=== PATIENT | male | born 1960 | race American Indian/Alaskan Native ===

== ENCOUNTER 2019-02-23 12:42 | Emergency (ER) | payer BC ==
[2019-02-23 12:54] VITALS: RESP 18
[2019-02-23] MEDS ORDERED: Labetalol 5mg/ml (4ml) IV STA (13:26)
[2019-02-23 13:42] LABS: BASO # 0.04 K/mm3 (0.0-2.0); BASO % 0.3 % (0.0-3.0); HEMOGLOBIN 15.5 g/dL (14.0-18.0); LYMPH % 8.2 % (22.0-35.0); MEAN CELL VOLUME 83.1 fl (80.0-105.0); MEAN CORPUSCULAR HEMOGLOBIN 28.8 pg (25.0-35.0); MEAN CORPUSCULAR HGB CONC 34.7 g/dl (31.0-37.0); MEAN PLATELET VOLUME 9.3 fl (7.0-11.0); MONO # 0.8 (0.1-0.6); MONO % 6.5 % (1.0-6.0); RBC 5.38 10^6/uL (3.5-6.1); RED CELL DISTRIBUTION WIDTH 13.3 % (11.5-14.5); WHITE BLOOD COUNT 12.6 10^3/uL (4.5-11.0)
[2019-02-23 13:48] LABS: ALT/SGPT 15 U/L (7-56); AST/SGOT 29 U/L (17-59); CALCIUM 9.3 mg/dL (8.4-10.5); GFR NON-AFRICAN AMERICAN > 60
[2019-02-23 13:49] LABS: BLOOD UREA NITROGEN 15 mg/dL (7-21)
[2019-02-23] MEDS ORDERED: Labetalol 5 mg/ml Inj 20ML IV STA (13:52)
[2019-02-23 13:53] LABS: ALB/GLOB RATIO 1.2 (1.1-1.8); ALBUMIN 4.9 g/dL (3.0-4.8)
--- NOTE | 2019-02-23 14:21 | ED PDOC ---
Arrival/HPI - General Chief Complaint: ENT Problem Time Seen by Provider: 02/23/19 12:56 Historian: Patient - History of Present Illness Narrative History of Present Illness (Text): 02/23/19 14:21 58 year old male, with no significant past medical history, who presents to the emergency department complaining of pain in throat onset yesterday. Patient reports he was sent to the emergency room for high blood pressure by his PMD, Dr. Hilton, whom he initially saw for pain in his throat. Patient also reports similar symptoms years ago. He denies any hemoptysis, headache, nausea, vomiting, shortness of breath, chest pain, or any other symptoms. PMD: Dr. Hilton Time/Duration: 24 hours Symptom Onset: Gradual Symptom Course: Unchanged Activities at Onset: Light Context: Home Past Medical History - Provider Review Nursing Documentation Reviewed: Yes - Cardiac Hx Hypertension: Yes - Psychiatric Hx Substance Use: No Family/Social History - Physician Review Nursing Documentation Reviewed: Yes Family/Social History: Unknown Family HX Smoking Status: Never Smoked Hx Alcohol Use: Yes Frequency of alcohol use: Socially Hx Substance Use: No Allergies/Home Meds Allergies/Adverse Reactions: Allergies No Known Allergies Allergy (Verified 02/23/19 12:53) Home Medications: Home Meds Medication Instructions Recorded Confirmed Allopurinol [Zyloprim] 300 mg PO DAILY 08/20/16 02/23/19 Atorvastatin [Lipitor] 10 mg PO DAILY 08/20/16 02/23/19 Colchicine 0.6 mg PO DAILY 08/20/16 02/23/19 amLODIPine [Norvasc] 10 mg PO DAILY 08/20/16 02/23/19 Review of Systems - Physician Review All systems were reviewed & negative as marked: Yes - Review of Systems Constitutional: Fevers ENT: Other (pain in throat. ) Respiratory: absent: SOB, Cough Cardiovascular: absent: Chest Pain Gastrointestinal: absent: Abdominal Pain, Nausea, Vomiting Musculoskeletal: absent: Back Pain, Neck Pain Neurological: absent: Headache, Dizziness Endocrine: absent: Diaphoresis Physical Exam Vital Signs Reviewed: Yes Vital Signs Temp Pulse Resp BP Pulse Ox 02/23/19 13:54 114 H 163/96 H 02/23/19 13:46 113 H 18 163/96 H 96 02/23/19 13:31 100.2 F H 02/23/19 12:51 100.2 F H 131 H 18 175/115 H 100 Temperature: Febrile Blood Pressure: Hypertensive Pulse: Tachycardic Respiratory Rate: Normal Appearance: Positive for: Well-Appearing, Non-Toxic, Comfortable Pain Distress: None Mental Status: Positive for: Alert and Oriented X 3 - Systems Exam Head: Present: Atraumatic, Normocephalic Pupils: Present: PERRL Extroacular Muscles: Present: EOMI Conjunctiva: Present: Normal Mouth: Present: Moist Mucous Membranes Pharnyx: Present: EXUDATE (white exudate visualized bilaterally), TONSILS ENLARGED (tonsillar swelling) Neck: Present: Normal Range of Motion Respiratory/Chest: Present: Clear to Auscultation, Good Air Exchange. No: Respiratory Distress, Accessory Muscle Use Cardiovascular: Present: Regular Rate and Rhythm, Normal S1, S2. No: Murmurs Abdomen: No: Tenderness, Distention, Peritoneal Signs Upper Extremity: Present: Normal Inspection. No: Cyanosis, Edema Lower Extremity: Present: Normal Inspection. No: Edema Neurological: Present: GCS=15, Speech Normal Skin: Present: Warm, Dry, Normal Color. No: Rashes Psychiatric: Present: Alert, Oriented x 3, Normal Insight, Normal Concentration Medical Decision Making ED Course and Treatment: 02/23/19 14:18 Impression: 58 year old male presents to the emergency department complaining of pain in throat onset yesterday. Differential Diagnosis included but are not limited to: --Tonsilitis --Pharyngitis --Hypertensive Urgency Plan: -- Rapid step -- IV Fluids -- Throat culture -- Labetalol -- Motrin -- Trandate -- Labs -- Amoxicillin -- Motrin -- Reassess and disposition Prior Visits: Notes and results from previous visits were reviewed. Progress Notes: 02/23/19 16:31 Leukocytosis of 12 noted with patient's tachcyardia noted to decrease to 94 w/ blood pressure of 120/81. Discussed case with Dr. Hilton(PCP) who requests for blood cultures to be performed prior to discharge. Patient updated on disposition and will follow up. 00 - Lab Interpretations Lab Results: Total Bilirubin 0.7 mg/dL (0.2-1.3) 02/23/19 13:23 AST 29 U/L (17-59) 02/23/19 13:23 ALT 15 U/L (7-56) 02/23/19 13:23 Alkaline Phosphatase 78 U/L (38-126) 02/23/19 13:23 Total Protein 9.0 g/dL (5.8-8.3) H 02/23/19 13:23 Albumin 4.9 g/dL (3.0-4.8) H 02/23/19 13:23 Globulin 4.2 gm/dL 02/23/19 13:23 Albumin/Globulin Ratio 1.2 (1.1-1.8) 02/23/19 13:23 - Medication Orders Current Medication Orders: Discontinued Medications Ibuprofen (Motrin Tab) 600 mg PO STAT STA Stop: 02/23/19 13:16 Last Admin: 02/23/19 13:31 Dose: 600 mg MAR Pain/Vitals Document 02/23/19 13:31 LA (Rec: 02/23/19 13:32 LA [id number]) Pain Reassessment Is This A Pain ReAssessment? No Sleep Is patient sleeping during reassessment? No Presence of Pain Presence of Pain Yes Pain Scale Used Protocol: PSCALES Pain Scale Used Numeric Location Intensity 4 Scale Used Numeric Vitals Temperature (97.6 F-99.6 F) 100.2 F Temperature Source Oral Labetalol HCl (Trandate) 10 mg IV STAT STA Stop: 02/23/19 13:53 Last Admin: 02/23/19 13:54 Dose: 10 mg eMAR Start Stop Document 02/23/19 13:54 LA (Rec: 02/23/19 13:55 [id number]) Intravenous Solution Start Date 02/23/19 Start Time 13:55 [facility] Pulse and Blood Pressure Document 02/23/19 13:54 LA (Rec: 02/23/19 13:55 LA [id number]) Pulse Pulse Rate (60-90) 114 Blood Pressure Blood Pressure (100/60-150/90) 163/96 - Scribe Statement The provider has reviewed the documentation as recorded by the Adamibiliana Alex All medical record entries made by the Scribe were at my direction and personally dictated by me. I have reviewed the chart and agree that the record accurately reflects my personal performance of the history, physical exam, medical decision making, and the department course for this patient. I have also personally directed, reviewed, and agree with the discharge instructions and disposition. Disposition/Present on Arrival - Present on Arrival Any Indicators Present on Arrival: No History of DVT/PE: No History of Uncontrolled Diabetes: No Urinary Catheter: No History of Decub. Ulcer: No History Surgical Site Infection Following: None - Disposition Have Diagnosis and Disposition been Completed?: Yes Diagnosis: Acute tonsillitis Disposition: HOME/ ROUTINE Disposition Time: 16:42 Patient Plan: Discharge Condition: STABLE Discharge Instructions (ExitCare): Sore Throat, Adult (DC) Print Language: FAROESE Additional Instructions: All medical record entries made by the Scribe were at my direction and personally dictated by me. I have reviewed the chart and agree that the record accurately reflects my personal performance of the history, physical exam, medical decision making, and the department course for this patient. I have also personally directed, reviewed, and agree with the discharge instructions and disposition. Please take medication as prescribed and follow up with Dr. Hilton next week Prescriptions: Amoxicillin 500 mg PO BID 10 Days #20 tablet Mag&Al/Simet/Diphen/Lido [First Magic Mouthwash] 30 ml MM PRN PRN #1 kit PRN Reason: Pain, Moderate (4-7) Referrals: Nohelia Hilton MD [Family Provider] - Follow up with primary Forms: WORK NOTE, [facility] ([place])
[2019-02-23] MEDS ORDERED: Sodium Chloride 0.9% 1,000 ML IV STA (15:50)
[2019-02-23 16:07] VITALS: BP 125/71; PULSE 94; TEMP 98.1; O2SAT 96
== END 2019-02-23 17:30 | disposition home or self-care (01) ==
LOC: ED 12:42
DX: J03.90 Acute tonsillitis, unspecified (principal)
CPT/HCPCS: 80053; 85025; 87040; 87070; 87430; 96360; 99284; J7030